=== PATIENT | male | born 1945 | race African-American/Black ===

== ENCOUNTER → 2017-01-04 | Outpatient (CLI) | payer BC, MEDICARE ==
[~2017-01-04] MED LIST: METF-620 PO; REGADENOSON 0.4 MG/5 ML DISP.SYRIN. IV ONE
--- NOTE | 2017-01-04 10:25 | RAD ---
Carotid Doppler 01/04/2017 at 0951 hours Indication: Transient ischemic attack Comparison: None available Technique: Sonographic imaging of the neck vessels performed utilizing grayscale, color Doppler and spectral waveform analysis. Findings: Right carotid: No significant luminal filling defect. Peak systolic velocity: Proximal common carotid artery: 96 cm/s Middle common carotid artery 83 cm/s Distal common carotid artery: 82 cm/s Proximal internal carotid artery: 56 cm/s Mid internal carotid artery: 57 cm/s Distal internal carotid artery: 50 cm/s External carotid artery: 52 cm/s End-diastolic velocity: Proximal common carotid artery: 17 cm/s Middle common carotid artery 18 cm/s Distal common carotid artery: 19 cm/s Proximal internal carotid artery: 18 cm/s Mid internal carotid artery: 20 cm/s Distal internal carotid artery: 16 cm/s Proximal ICA/CCA ratio: 0.67 Mid ICA/ECA ratio: 0.68 Distal ICA/CCA ratio: 0.60 Antegrade flow is identified within the vertebral artery. No subclavian stenosis. Left carotid: No significant luminal filling defect. Proximal common carotid artery: 115 cm/s Middle common carotid artery 98 cm/s Distal common carotid artery: 95 cm/s Proximal internal carotid artery: 44 cm/s Mid internal carotid artery: 75 cm/s Distal internal carotid artery: 46 cm/s External carotid artery: 49 cm/s End- diastolic velocity: Proximal common carotid artery: 23 cm/s Middle common carotid artery 21 cm/s Distal common carotid artery: 19 cm/s Proximal internal carotid artery: 14 cm/s Mid internal carotid artery: 24 cm/s Distal internal carotid artery: 16 cm/s Proximal ICA/CCA ratio: 0.44 Mid ICA/ECA ratio: 0.76 Distal ICA/CCA ratio: 0.46 Antegrade flow is identified in the vertebral artery. No subclavian stenosis. Impression: 1. There is no significant carotid stenosis. 2. Antegrade flow is identified in the vertebral arteries.
--- NOTE | 2017-01-04 19:43 | RAD ---
APPROVED REPORT Test Type: Pharmacological Stress Nurse/Tech: Tanna Uriarte R.N. Test Indications: Chest pain Cardiac History: SEE EMR Medications: SEE EMR Medical History: SEE EMR Resting ECG: SR Prolonged ME Interval, BBB Resting Heart Rate: 54 bpm Resting Blood Pressure: 115/80mmHg Pretest Chest Pain: None Nurse/Tech Notes S1S2, lungs CTA, denied chest pain and SOA. Consent: The procedure was explained to the patient in lay terms. Informed consent was witnessed. Shravan eout was entered into [employer]. History and Stress Test performed by Tanna Uriarte R.N. Pharm. Details Pharmacologic stress testing was performed using 0.4mg per 5ml of regadenoson given intravenously ove r 7-10 seconds. Stress Symptoms C/O mid-sternal chest tightness. POST EXERCISE Reason for Termination: Infusion complete Max HR: 81 bpm Max Blood Pressure: 124/63mmHg Blood Pressure response to exercise: Normal blood pressure response during stress. Heart Rate response to exercise: Normal Chest Pain: No. Arrhythmia: No. ST Change: No. INTERPRETATION Stress EKG Conclusion: No acute changes were noted. Imaging Protocol IMAGE PROTOCOL: Rest Tc-99m/stress Tc-99m 1 day Rest: Stress: Viability: Radiopharm.Tc99m [id number] Sestamibi Dose10.6mCi 33.9mCi Duration 15min. 10min. Img Date 01/04/2017 01/04/2017 Inj-Img [id number]. 60min. Rest Admin Site:IV - Left AntecubitalAdministrator:SEBAS Kyle Stress Admin Site: IV - Left AntecubitalAdministrator: SEBAS Kyle STRESS DATA End Diast. Vol.110.0mlAv. Heart Rate64.0bpm End Syst. Vol.29.0mlCO Index BSA0.0L/min Myocardial Xyll775.0gEject. Cdehudcx98.0% Stress Rates Pk. Fill Rate2.08EDV/secLVtime Pk. Fill 149.45msec Pk. Empty Rate3.42ESV/secLVtime Pk. Hdqyz659.65msec 05/24 Pk. Fill1.42EDV/sec Stress Scores Regional WT0.00Summed WT1.00 Regional WM0.00Summed WM0.00 LV Perf. Quant 17 Seg. SSS0.00 17 Seg. SRS1.00 17 Seg. SDS0.00 Stress Defect Extent (% LAD)0.00Rest Defect Extent (% LAD)0.00Rev. Defect Extent (% LAD)0.00 Stress Defect Extent (% LCX) 0.00Rest Defect Extent (% LCX)0.00Rev. Defect Extent (% LCX)0.00 Stress Defect Extent (% RCA)0.00Rest Defect Extent (% RCA)0.00Rev. Defect Extent (% RCA)0.00 Stress Defect Extent (% SANAM)0.00Rest Defect Extent (% SANAM)0.00Rev. Defect Extent (% SANAM)0.00 Conclusion 1. Baseline electrocardiogram showed a right bundle branch block. 2. There were no electrocardiographic changes suggestive of myocardial ischemia with pharmacological stress. 3. There are no perfusion defects suggestive of myocardial ischemia or scar. 4. There is normal wall motion and wall thickening with an ejection fraction of 74%. 5. There is no significant transient ischemic dilatation of the left ventricle or right ventricular u ptake to suggest a false negative test. 6. Scca probably indicates a low risk for future cardiac events.
== END | disposition home or self-care (01) ==
LOC: NM 09:36
PROVIDERS: ATTEND Specialist
DX: G45.9 Transient cerebral ischemic attack, unspecified (principal); I49.5 Sick sinus syndrome; I45.10 Unspecified right bundle-branch block
CPT/HCPCS: 78452; 93017; 93880; 96374; 96375; 96376; A9500; J2785